=== PATIENT | male | born 1990 | race African-American/Black ===

== ENCOUNTER 2018-01-30 21:26 | Emergency (ER) | payer MEDICAID ==
[~2018-01-30] VITALS: Ht 175.3 cm; Wt 105.0 kg
[~2018-01-30 21:26] MED LIST: ABIL10; CLON1TAB5; PHEN15TA2; PROP40TA7; [UNRECOGNIZED DRUG - CODE]
[2018-01-30 21:28] VITALS: BP 135/86
== END 2018-01-31 | disposition left against medical advice (07) ==
LOC: ER 21:26
DX: Z53.21 Procedure and treatment not carried out due to patient leaving prior to being seen by health care provider (principal); F41.9 Anxiety disorder, unspecified